=== PATIENT | female | born 1965 | race Caucasian/White ===

== ENCOUNTER 2017-12-14 07:53 | Outpatient (CLI) | payer MEDICAID ==
[~2017-12-14 07:53] MED LIST: DEXL60CA3; DIPH25CA6; DIPH25TA89 PO; ESTR1TAB28; ONDA4TAB12 PO; OXYC-134 PO; PROM25TA14 PO; SUCR1TAB
[2017-12-14 09:10] LABS: BASOPHILS # (AUTO) 0.1 X10'3 (0-0.2); BASOPHILS % (AUTO) 0.7 % (0-1); EOSINOPHILS # (AUTO) 0.1 X10'3 (0-0.9); EOSINOPHILS % (AUTO) 1.1 % (0-6); HEMATOCRIT 41.5 % (35.0-45.0); HEMOGLOBIN 14.3 g/dl (12.0-16.0); LYMPHOCYTES # (AUTO) 1.4 X10'3 (1.1-4.8); LYMPHOCYTES % (AUTO) 18.3 % (21-51); MEAN CORPUSCULAR HEMOGLOBIN 32.4 PG (27.0-31.0); MEAN CORPUSCULAR HGB CONC 34.4 % (33.0-36.5); MEAN CORPUSCULAR VOLUME 94.2 FL (78-98); MEAN PLATELET VOLUME 8.3 FL (7.4-10.4); MONOCYTES # (AUTO) 0.4 X10'3 (0-0.9); NEUTROPHILS # (AUTO) 5.7 X10'3 (1.8-7.7); NEUTROPHILS % (AUTO) 74.9 % (42-75); PLATELET COUNT 265 X10'3 (140-440); RED BLOOD COUNT 4.41 X10'6 (4.20-5.60); RED CELL DISTRIBUTION WIDTH 12.8 % (11.5-14.5); WHITE BLOOD COUNT 7.7 X10'3 (4.5-11.0)
[2017-12-14 09:24] LABS: ALANINE AMINOTRANSFERASE 28 U/L (12-78); ALBUMIN 3.5 G/DL (3.4-5.0); ALBUMIN/GLOBULIN RATIO 0.9 (1.1-1.5); ALKALINE PHOSPHATASE 92 IU/L (46-116); ANION GAP 11 (8-16); ASPARTATE AMINO TRANSFERASE 23 U/L (10-37); BILIRUBIN,TOTAL 0.3 MG/DL (0.1-1.0); BLOOD UREA NITROGEN 10 MG/DL (7-18); BUN/CREATININE RATIO 16.1 (6.6-38.0); CALCIUM 9.2 MG/DL (8.5-10.1); CHLORIDE 104 MMOL/L (99-107); CREATININE 0.62 MG/DL (0.40-0.90); GLUCOSE 112 MG/DL (70-104); POTASSIUM 3.4 MMOL/L (3.5-5.1); SODIUM 141 MMOL/L (135-145); TOTAL CARBON DIOXIDE 25.8 MMOL/L (24-32); TOTAL PROTEIN 7.5 G/DL (6.4-8.2); eGFR > 90 ML/MIN
== END 2017-12-14 23:59 | disposition home or self-care (01) ==
LOC: RAD 07:53
PROVIDERS: ATTEND Nurse Practitioner
DX: L03.90 Cellulitis, unspecified (principal); F17.200 Nicotine dependence, unspecified, uncomplicated; Z90.710 Acquired absence of both cervix and uterus; W34.00XA Accidental discharge from unspecified firearms or gun, initial encounter; Y93.89 Activity, other specified; Y92.89 Other specified places as the place of occurrence of the external cause; Y99.8 Other external cause status
CPT/HCPCS: 36415; 76881; 80053; 85025

== ENCOUNTER 2017-12-14 14:49 | Emergency (ER) | payer MEDICAID ==
[~2017-12-14] VITALS: Ht 152.4 cm; Wt 77.8 kg
[2017-12-14] MEDS ORDERED: iohexol 300mg/ml 100ml inj. ONE (16:01)
[2017-12-14 17:19] VITALS: BP 130/52
== END 2017-12-14 17:22 | disposition home or self-care (01) ==
LOC: ER 14:50
DX: L03.311 Cellulitis of abdominal wall (principal); G89.29 Other chronic pain; Z90.49 Acquired absence of other specified parts of digestive tract; Z90.710 Acquired absence of both cervix and uterus; Z88.0 Allergy status to penicillin; Z88.7 Allergy status to serum and vaccine; Z88.5 Allergy status to narcotic agent; Z88.6 Allergy status to analgesic agent; Z79.899 Other long term (current) drug therapy
CPT/HCPCS: 74177; 99284; J7030; Q9967

== ENCOUNTER 2018-07-16 05:48 | Emergency (ER) | payer MEDICAID ==
[~2018-07-16] VITALS: Ht 152.4 cm; Wt 72.7 kg
[~2018-07-16 05:48] MED LIST changes: +ALBU8HFA PO; +PANT-47 PO
[2018-07-16] MEDS ORDERED: acetaminophen 325mg tablet PO ONE (06:10)
[2018-07-16] MEDS ORDERED: ondansetron 4mg rapidly disintigrating tab PO ONE (06:10)
[2018-07-16] MEDS ORDERED: pantoprazole 40mg Tablet.DR PO ONE (06:15)
[2018-07-16 07:02] LABS: CLARITY,URINE SLIGHTLY CLOUDY (Clear); COLOR,URINE YELLOW (Yellow); GLUCOSE, URINE NEGATIVE (Neg); KETONES,URINE NEGATIVE (Neg); LEUKOCYTE ESTERASE ,URINE NEGATIVE (Neg); NITRITES, URINE POSITIVE (Neg); OCCULT BLOOD,URINE TRACE-LYSED (Neg); PROTEIN,URINE TRACE mg/dl (Neg); UA COLLECTION TYPE CLN CATCH MIDSTREAM; UROBILINOGEN,URINE 0.2 E.U/dL (0.2-1.0)
[2018-07-16 07:09] LABS: BACTERIA,URINE 4+ /HPF (Neg); COARSE GRANULAR CAST 0-3 /LPF (NEGATIVE); MUCUS STRANDS NONE SEEN /LPF (Neg); SQUAMOUS EPITHELIAL CELL,UR MODERATE /LPF (FEW); WBC,URINE 0-4 /HPF (0-4)
[2018-07-16 07:23] LABS: BASOPHILS # (AUTO) 0.1 X10'3 (0-0.2); BASOPHILS % (AUTO) 0.7 % (0-1); EOSINOPHILS % (AUTO) 0.5 % (0-6); HEMOGLOBIN 14.5 g/dl (12.0-16.0); LYMPHOCYTES # (AUTO) 1.1 X10'3 (1.1-4.8); LYMPHOCYTES % (AUTO) 14.2 % (21-51); MEAN CORPUSCULAR HEMOGLOBIN 32.1 PG (27.0-31.0); MEAN CORPUSCULAR HGB CONC 34.4 g/dL (33.0-36.5); MEAN CORPUSCULAR VOLUME 93.1 FL (78-98); MONOCYTES # (AUTO) 0.5 X10'3 (0-0.9); MONOCYTES % (AUTO) 5.9 % (2-12); NEUTROPHILS # (AUTO) 6.3 X10'3 (1.8-7.7); NEUTROPHILS % (AUTO) 78.7 % (42-75); PLATELET COUNT 222 X10'3 (140-440); RED BLOOD COUNT 4.51 X10'6 (4.20-5.60); RED CELL DISTRIBUTION WIDTH 12.8 % (11.5-14.5); WHITE BLOOD COUNT 8.1 X10'3 (4.5-11.0)
[2018-07-16] MEDS ORDERED: normal saline 1000ml 1,000 ML IV ONE (07:25)
[2018-07-16 07:38] LABS: ALANINE AMINOTRANSFERASE 80 U/L (12-78); ALBUMIN 3.8 G/DL (3.4-5.0); ALKALINE PHOSPHATASE 100 IU/L (46-116); ANION GAP 12 (8-16); ASPARTATE AMINO TRANSFERASE 39 U/L (10-37); BILIRUBIN,TOTAL 0.4 MG/DL (0.1-1.0); BLOOD UREA NITROGEN 11 MG/DL (7-18); BUN/CREATININE RATIO 16.2 (6.6-38.0); CALCIUM 9.7 MG/DL (8.5-10.1); CHLORIDE 107 MMOL/L (99-107); CREATININE 0.68 MG/DL (0.40-0.90); GLUCOSE 124 MG/DL (70-104); LIPASE 178 U/L (73-393); POTASSIUM 3.4 MMOL/L (3.5-5.1); SODIUM 142 MMOL/L (135-145); TOTAL CARBON DIOXIDE 22.9 MMOL/L (24-32); TOTAL PROTEIN 7.7 G/DL (6.4-8.2); eGFR 90 ML/MIN
[2018-07-16] MEDS ORDERED: HYDROcodone/acetaminophen 5mg/325mg tablet PO ONE (07:55)
[2018-07-16] MEDS ORDERED: ciprofloxacin 250mg tablet PO ONE (07:55)
[2018-07-16] MEDS ORDERED: CIPR-230 PO (07:56)
[2018-07-16] MEDS ORDERED: HYDR-3965 PO (07:56)
[2018-07-16 09:00] VITALS: BP 149/84
== END 2018-07-16 09:02 | disposition home or self-care (01) ==
LOC: ER 05:49
DX: R10.84 Generalized abdominal pain (principal); R19.7 Diarrhea, unspecified; G89.29 Other chronic pain; Z90.49 Acquired absence of other specified parts of digestive tract; Z90.710 Acquired absence of both cervix and uterus; Z88.0 Allergy status to penicillin; Z88.5 Allergy status to narcotic agent; Z88.7 Allergy status to serum and vaccine; Z79.899 Other long term (current) drug therapy; Z88.6 Allergy status to analgesic agent
CPT/HCPCS: 36415; 80053; 81001; 83605; 83690; 85025; 85610; 87077; 87088; 87186; 96360; 99284; J7030

== ENCOUNTER 2018-08-29 17:45 | Emergency (ER) | payer MEDICAID ==
[~2018-08-29] VITALS: Ht 152.4 cm; Wt 80.9 kg
[~2018-08-29 17:45] MED LIST changes: -ALBU8HFA PO
[2018-08-29 17:53] VITALS: BP 124/83
[2018-08-29] MEDS ORDERED: FLUT16SP2 BOTHNARES (18:38)
[2018-08-29] MEDS ORDERED: CETI10TA15 PO (18:38)
== END 2018-08-29 19:18 | disposition home or self-care (01) ==
LOC: ER 17:46
DX: H92.02 Otalgia, left ear (principal); J30.2 Other seasonal allergic rhinitis; G89.29 Other chronic pain; F17.200 Nicotine dependence, unspecified, uncomplicated; Z90.49 Acquired absence of other specified parts of digestive tract; Z90.710 Acquired absence of both cervix and uterus; Z88.0 Allergy status to penicillin; Z88.5 Allergy status to narcotic agent; Z88.8 Allergy status to other drugs, medicaments and biological substances; Z79.899 Other long term (current) drug therapy
CPT/HCPCS: 99283

== ENCOUNTER 2019-01-15 08:34 | Emergency (ER) | payer MEDICAID ==
[~2019-01-15] VITALS: Ht 152.4 cm; Wt 84.8 kg
[~2019-01-15 08:34] MED LIST changes: +CETI10TA15 PO; +DIPH25CA54; -DIPH25CA6; +FLUT16SP2 BOTHNARES
[2019-01-15] MEDS ORDERED: albuterol 2.5 MG/3 ML nebule NEB ONE (09:05)
[2019-01-15] MEDS ORDERED: PRED20TA PO (09:43)
[2019-01-15] MEDS ORDERED: AZIT250T83 PO (09:43)
[2019-01-15] MEDS ORDERED: ALBU18HF2 INH (09:43)
--- NOTE | 2019-01-15 09:45 | NUR ---
SECOND PAGE PLACED FOR RT
[2019-01-15] MEDS ORDERED: NICO-687 TOP (09:53)
[2019-01-15] MEDS ORDERED: BENZ-16 PO (09:53)
[2019-01-15 10:09] VITALS: BP 152/80
== END 2019-01-15 10:11 | disposition home or self-care (01) ==
LOC: ER 08:35
DX: J20.9 Acute bronchitis, unspecified (principal); G89.29 Other chronic pain; Z90.49 Acquired absence of other specified parts of digestive tract; Z90.710 Acquired absence of both cervix and uterus; F17.200 Nicotine dependence, unspecified, uncomplicated; Z98.890 Other specified postprocedural states; Z88.0 Allergy status to penicillin; Z88.5 Allergy status to narcotic agent; Z88.6 Allergy status to analgesic agent; Z88.7 Allergy status to serum and vaccine; Z79.899 Other long term (current) drug therapy
CPT/HCPCS: 71045; 94640; 94760; 99283

== ENCOUNTER 2019-01-18 07:45 | Emergency (ER) | payer MEDICAID ==
[~2019-01-18] VITALS: Ht 152.4 cm; Wt 83.0 kg
[~2019-01-18 07:45] MED LIST changes: +ALBU18HF2 INH; +AZIT250T83 PO; +BENZ-16 PO; +NICO-687 TOP; +PRED20TA PO
[2019-01-18] MEDS ORDERED: pantoprazole 40mg Tablet.DR PO ONE (08:20)
[2019-01-18] MEDS ORDERED: ondansetron 4mg rapidly disintigrating tab PO ONE (08:20)
[2019-01-18] MEDS ORDERED: loperamide 2mg capsule PO ONE (08:20)
[2019-01-18] MEDS ORDERED: CHOL10002 PO (08:21)
[2019-01-18] MEDS ORDERED: OMEP40CA13 PO (08:21)
[2019-01-18] MEDS ORDERED: PROC-8 PO (08:24)
[2019-01-18 09:20] VITALS: BP 104/31
== END 2019-01-18 09:22 | disposition home or self-care (01) ==
LOC: ER 07:46
DX: K29.70 Gastritis, unspecified, without bleeding (principal); T36.3X5A Adverse effect of macrolides, initial encounter; T38.0X5A Adverse effect of glucocorticoids and synthetic analogues, initial encounter; J44.9 Chronic obstructive pulmonary disease, unspecified; K21.9 Gastro-esophageal reflux disease without esophagitis; G89.29 Other chronic pain; F17.200 Nicotine dependence, unspecified, uncomplicated; Z90.49 Acquired absence of other specified parts of digestive tract; Z90.710 Acquired absence of both cervix and uterus; Z98.890 Other specified postprocedural states; Z88.0 Allergy status to penicillin; Z88.5 Allergy status to narcotic agent; Z79.2 Long term (current) use of antibiotics; Z79.899 Other long term (current) drug therapy; Y92.89 Other specified places as the place of occurrence of the external cause
CPT/HCPCS: 99284

== ENCOUNTER 2019-05-08 17:48 | Emergency (ER) | payer MEDICAID ==
[~2019-05-08] VITALS: Ht 152.4 cm; Wt 81.8 kg
[~2019-05-08 17:48] MED LIST changes: -AZIT250T83 PO; -BENZ-16 PO; -CETI10TA15 PO; +CHOL10002 PO; -DEXL60CA3; -DIPH25CA54; -DIPH25TA89 PO; -ESTR1TAB28; -FLUT16SP2 BOTHNARES; -NICO-687 TOP; +OMEP40CA13 PO; -ONDA4TAB12 PO; -OXYC-134 PO; -PANT-47 PO; -PRED20TA PO; +PROC-8 PO; -PROM25TA14 PO
[2019-05-08 19:23] LABS: BASOPHILS # (AUTO) 0.1 X10'3 (0-0.2); BASOPHILS % (AUTO) 1.2 % (0-1); EOSINOPHILS # (AUTO) 0.1 X10'3 (0-0.9); EOSINOPHILS % (AUTO) 0.9 % (0-6); HEMOGLOBIN 14.5 g/dl (12.0-16.0); LYMPHOCYTES # (AUTO) 2.3 X10'3 (1.1-4.8); LYMPHOCYTES % (AUTO) 36.3 % (21-51); MEAN CORPUSCULAR HEMOGLOBIN 32.3 PG (27.0-31.0); MEAN CORPUSCULAR HGB CONC 35.2 g/dL (33.0-36.5); MEAN CORPUSCULAR VOLUME 91.8 FL (78-98); MEAN PLATELET VOLUME 7.8 FL (7.4-10.4); MONOCYTES # (AUTO) 0.5 X10'3 (0-0.9); MONOCYTES % (AUTO) 7.7 % (2-12); NEUTROPHILS # (AUTO) 3.5 X10'3 (1.8-7.7); NEUTROPHILS % (AUTO) 53.9 % (42-75); PLATELET COUNT 261 X10'3 (140-440); RED BLOOD COUNT 4.47 X10'6 (4.20-5.60); RED CELL DISTRIBUTION WIDTH 12.7 % (11.5-14.5); WHITE BLOOD COUNT 6.4 X10'3 (4.5-11.0)
[2019-05-08 19:35] LABS: ALANINE AMINOTRANSFERASE 41 U/L (12-78); ALBUMIN 3.9 G/DL (3.4-5.0); ALBUMIN/GLOBULIN RATIO 1.1 (1.1-1.5); ALKALINE PHOSPHATASE 82 IU/L (46-116); ANION GAP 9 (8-16); ASPARTATE AMINO TRANSFERASE 19 U/L (10-37); BILIRUBIN,TOTAL 0.2 MG/DL (0.1-1.0); BLOOD UREA NITROGEN 8 MG/DL (7-18); BUN/CREATININE RATIO 11.1 (6.6-38.0); CALCIUM 9.2 MG/DL (8.5-10.1); CHLORIDE 107 MMOL/L (99-107); CREATININE 0.72 MG/DL (0.40-0.90); GLUCOSE 99 MG/DL (70-104); LIPASE 165 U/L (73-393); POTASSIUM 3.5 MMOL/L (3.5-5.1); SODIUM 142 MMOL/L (135-145); TOTAL PROTEIN 7.4 G/DL (6.4-8.2); eGFR 84 ML/MIN
[2019-05-08 20:27] LABS: URINE HCG NEGATIVE (NEG)
[2019-05-08 20:30] LABS: CLARITY,URINE SLIGHTLY CLOUDY (Clear); COLOR,URINE YELLOW (Yellow); GLUCOSE, URINE NEGATIVE (Neg); KETONES,URINE NEGATIVE (Neg); LEUKOCYTE ESTERASE ,URINE NEGATIVE (Neg); NITRITES, URINE NEGATIVE (Neg); OCCULT BLOOD,URINE TRACE-INTACT (Neg); PH,URINE 7.5 (4.8-8.0); PROTEIN,URINE 30 mg/dl (Neg); UROBILINOGEN,URINE 0.2 E.U/dL (0.2-1.0)
[2019-05-08] MEDS ORDERED: mag hydrox/Alum hydrox/simeth 30ml oral suspension PO ONE (20:30)
[2019-05-08] MEDS ORDERED: normal saline 1000ML IV soln IVB ONE (20:30)
[2019-05-08] MEDS ORDERED: pantoprazole 40 MG vial IV ONE (20:30)
[2019-05-08] MEDS ORDERED: ondansetron/PF 4mg/2ml inj IV ONE (20:30)
[2019-05-08] MEDS ORDERED: LIDOcaine Viscous 15ml cup MM ONE (20:30)
--- NOTE | 2019-05-08 20:44 | NUR ---
pt did not want an IV. She would rather take protonix and zofran PO. Dr. Cisneros is ok with PO. New orders placed. pt denies n/v or headache. Denies dizziness. she will drink water PO
[2019-05-08] MEDS ORDERED: ondansetron 4mg rapidly disintigrating tab PO ONE (20:45)
[2019-05-08 20:49] LABS: UA COLLECTION TYPE VOIDED
[2019-05-08 20:53] LABS: BACTERIA,URINE NONE SEEN /HPF (Neg); RBC,URINE NONE SEEN /HPF (0-2); SQUAMOUS EPITHELIAL CELL,UR MANY /LPF (FEW); WBC,URINE 0-4 /HPF (0-4)
[2019-05-08 20:54] LABS: AMORPHOUS PHOSPHATES 1+
[2019-05-08] MEDS ORDERED: pantoprazole 40mg Tablet.DR PO SCH (21:01)
[2019-05-08 21:35] VITALS: BP 141/78
== END 2019-05-08 21:37 | disposition home or self-care (01) ==
LOC: ER 17:50
DX: R10.13 Epigastric pain (principal); R19.7 Diarrhea, unspecified; R11.0 Nausea; J44.9 Chronic obstructive pulmonary disease, unspecified; K21.9 Gastro-esophageal reflux disease without esophagitis; F17.200 Nicotine dependence, unspecified, uncomplicated; G89.29 Other chronic pain; Z90.49 Acquired absence of other specified parts of digestive tract; Z90.710 Acquired absence of both cervix and uterus; Z98.890 Other specified postprocedural states; Z88.0 Allergy status to penicillin; Z88.7 Allergy status to serum and vaccine; Z88.5 Allergy status to narcotic agent; Z88.6 Allergy status to analgesic agent; Z79.899 Other long term (current) drug therapy
CPT/HCPCS: 36415; 80053; 81001; 81025; 83690; 85025; 99284

== ENCOUNTER 2019-06-15 06:55 | Emergency (ER) | payer MEDICAID ==
[~2019-06-15] VITALS: Ht 154.9 cm; Wt 79.0 kg
[2019-06-15] MEDS ORDERED: albuterol 2.5 MG/3 ML nebule NEB ONE (07:20)
[2019-06-15] MEDS ORDERED: ipratropium/albuterol 3ml nebule NEB ONE (07:20)
[2019-06-15] MEDS ORDERED: predniSONE 20 mg tablet PO ONE (07:20)
[2019-06-15] MEDS ORDERED: PRED20TA PO (07:58)
[2019-06-15] MEDS ORDERED: ALBU8HFA PO (07:58)
[2019-06-15] MEDS ORDERED: AZIT250T PO (07:58)
[2019-06-15 08:22] VITALS: BP 127/70
== END 2019-06-15 08:23 | disposition home or self-care (01) ==
LOC: ER 06:56
DX: J44.1 Chronic obstructive pulmonary disease with (acute) exacerbation (principal); K21.9 Gastro-esophageal reflux disease without esophagitis; G89.29 Other chronic pain; F17.200 Nicotine dependence, unspecified, uncomplicated; Z90.49 Acquired absence of other specified parts of digestive tract; Z90.710 Acquired absence of both cervix and uterus; Z98.890 Other specified postprocedural states; Z88.0 Allergy status to penicillin; Z88.7 Allergy status to serum and vaccine; Z88.5 Allergy status to narcotic agent; Z88.6 Allergy status to analgesic agent; Z79.2 Long term (current) use of antibiotics; Z79.899 Other long term (current) drug therapy
CPT/HCPCS: 71045; 94640; 99283; J7512

== ENCOUNTER 2019-10-25 14:17 | Emergency (ER) | payer MEDICAID ==
[~2019-10-25] VITALS: Ht 152.4 cm; Wt 86.0 kg
[2019-10-25 14:36] VITALS: BP 137/81
== END 2019-10-25 16:31 | disposition home or self-care (01) ==
LOC: ER 14:18
DX: M25.512 Pain in left shoulder (principal); J44.9 Chronic obstructive pulmonary disease, unspecified; K21.9 Gastro-esophageal reflux disease without esophagitis; G89.29 Other chronic pain; F17.200 Nicotine dependence, unspecified, uncomplicated; Z90.49 Acquired absence of other specified parts of digestive tract; Z90.710 Acquired absence of both cervix and uterus; Z98.51 Tubal ligation status; Z98.890 Other specified postprocedural states; Z88.0 Allergy status to penicillin; Z88.7 Allergy status to serum and vaccine; Z88.5 Allergy status to narcotic agent; Z88.6 Allergy status to analgesic agent; Z79.899 Other long term (current) drug therapy
CPT/HCPCS: 73030; 93005; 93971; 99284

== ENCOUNTER 2019-11-26 00:55 | Emergency (ER) | payer MEDICAID ==
[~2019-11-26] VITALS: Ht 152.4 cm; Wt 90.0 kg
[2019-11-26] MEDS ORDERED: ondansetron/PF 4mg/2ml inj IV ONE ×2 (01:20→02:25)
[2019-11-26] MEDS ORDERED: famotidine/PF 10 mg/ml inj IV ONE (01:20)
[2019-11-26] MEDS ORDERED: normal saline 1000ml 1,000 ML IV ONE (01:20)
[2019-11-26 01:25] LABS: BASOPHILS # (AUTO) 0.1 X10'3 (0-0.2); BASOPHILS % (AUTO) 0.6 % (0-1); EOSINOPHILS # (AUTO) 0.1 X10'3 (0-0.9); EOSINOPHILS % (AUTO) 0.5 % (0-6); HEMATOCRIT 46.8 % (35.0-45.0); HEMOGLOBIN 16.1 g/dl (12.0-16.0); LYMPHOCYTES # (AUTO) 1.5 X10'3 (1.1-4.8); LYMPHOCYTES % (AUTO) 8.8 % (21-51); MEAN CORPUSCULAR HEMOGLOBIN 32.4 PG (27.0-31.0); MEAN CORPUSCULAR HGB CONC 34.4 g/dL (33.0-36.5); MEAN CORPUSCULAR VOLUME 94.3 FL (78-98); MONOCYTES # (AUTO) 1.1 X10'3 (0-0.9); MONOCYTES % (AUTO) 6.4 % (2-12); NEUTROPHILS # (AUTO) 14.2 X10'3 (1.8-7.7); NEUTROPHILS % (AUTO) 83.7 % (42-75); PLATELET COUNT 270 X10'3 (140-440); RED BLOOD COUNT 4.96 X10'6 (4.20-5.60); RED CELL DISTRIBUTION WIDTH 12.6 % (11.5-14.5)
[2019-11-26 01:41] LABS: ALANINE AMINOTRANSFERASE 31 U/L (12-78); ALBUMIN 4.3 G/DL (3.4-5.0); ALBUMIN/GLOBULIN RATIO 1.1 (1.1-1.5); ALKALINE PHOSPHATASE 82 IU/L (46-116); ANION GAP 13 (8-16); ASPARTATE AMINO TRANSFERASE 27 U/L (10-37); BILIRUBIN,TOTAL 0.4 MG/DL (0.1-1.0); BLOOD UREA NITROGEN 16 MG/DL (7-18); BUN/CREATININE RATIO 16.8 (6.6-38.0); CALCIUM 9.9 MG/DL (8.5-10.1); CHLORIDE 104 MMOL/L (99-107); CREATININE 0.95 MG/DL (0.40-0.90); GLUCOSE 154 MG/DL (70-104); POTASSIUM 3.6 MMOL/L (3.5-5.1); SODIUM 141 MMOL/L (135-145); TOTAL CARBON DIOXIDE 23.9 MMOL/L (24-32); TOTAL PROTEIN 8.2 G/DL (6.4-8.2); eGFR 61 ML/MIN
[2019-11-26 01:45] LABS: LIPASE 239 U/L (73-393); TROPONIN I < 0.04 NG/ML (0.0-0.05)
[2019-11-26] MEDS ORDERED: morphine 4 MG/ML inj SYRINge IV ONE ×2 (02:00→03:10)
[2019-11-26 02:12] LABS: CLARITY,URINE CLEAR (Clear); COLOR,URINE YELLOW (Yellow); GLUCOSE, URINE NEGATIVE (Neg); KETONES,URINE NEGATIVE (Neg); LEUKOCYTE ESTERASE ,URINE NEGATIVE (Neg); NITRITES, URINE NEGATIVE (Neg); OCCULT BLOOD,URINE SMALL (Neg); PROTEIN,URINE 30 mg/dl (Neg); UROBILINOGEN,URINE 0.2 E.U/dL (0.2-1.0)
[2019-11-26 02:13] LABS: UA COLLECTION TYPE CLN CATCH MIDSTREAM
[2019-11-26 02:19] LABS: BACTERIA,URINE NONE SEEN /HPF (Neg); MUCUS STRANDS FEW /LPF (Neg); RBC,URINE 0-2 /HPF (0-2); SQUAMOUS EPITHELIAL CELL,UR FEW /LPF (FEW); WBC,URINE NONE SEEN /HPF (0-4)
[2019-11-26] MEDS ORDERED: ONDA8TAB6 PO (03:13)
[2019-11-26] MEDS ORDERED: HYDR-3965 PO (03:13)
[2019-11-26] MEDS ORDERED: METO-292 PO (03:13)
[2019-11-26] MEDS ORDERED: metoclopramide 5 mg/ml inj IV ONE (03:15)
[2019-11-26 03:30] VITALS: BP 141/83
== END 2019-11-26 03:31 | disposition home or self-care (01) ==
LOC: ER 00:55
DX: K56.7 Ileus, unspecified (principal); R11.2 Nausea with vomiting, unspecified; J44.9 Chronic obstructive pulmonary disease, unspecified; K21.9 Gastro-esophageal reflux disease without esophagitis; G89.29 Other chronic pain; Z90.49 Acquired absence of other specified parts of digestive tract; Z90.710 Acquired absence of both cervix and uterus; Z98.51 Tubal ligation status; Z98.890 Other specified postprocedural states; Z88.0 Allergy status to penicillin; Z88.7 Allergy status to serum and vaccine; Z88.5 Allergy status to narcotic agent; Z79.899 Other long term (current) drug therapy
CPT/HCPCS: 36415; 74176; 80053; 81001; 83690; 84145; 84484; 85025; 96361; 96374; 96375; 96376; 99284; J2270; J2405; J2765; J3490; J7030

== ENCOUNTER 2020-02-09 14:57 | Emergency (ER) | payer MEDICAID ==
[~2020-02-09] VITALS: Ht 152.4 cm; Wt 77.7 kg
[~2020-02-09 14:57] MED LIST changes: +METO-292 PO; +ONDA8TAB6 PO
[2020-02-09] MEDS ORDERED: ondansetron 4mg rapidly disintigrating tab PO ONE (17:40)
[2020-02-09] MEDS ORDERED: meclizine 12.5mg tablet PO ONE (17:40)
[2020-02-09 18:51] VITALS: BP 127/75
== END 2020-02-09 18:45 | disposition home or self-care (01) ==
LOC: ER 14:59
DX: H81.10 Benign paroxysmal vertigo, unspecified ear (principal); R11.0 Nausea; R53.83 Other fatigue; J44.9 Chronic obstructive pulmonary disease, unspecified; K21.9 Gastro-esophageal reflux disease without esophagitis; G89.29 Other chronic pain; Z87.11 Personal history of peptic ulcer disease; Z90.49 Acquired absence of other specified parts of digestive tract; Z90.710 Acquired absence of both cervix and uterus; Z98.51 Tubal ligation status; Z98.890 Other specified postprocedural states; Z88.0 Allergy status to penicillin; Z88.5 Allergy status to narcotic agent; Z88.6 Allergy status to analgesic agent; Z79.899 Other long term (current) drug therapy
CPT/HCPCS: 99283; J8597; 93005

== ENCOUNTER 2020-03-25 06:14 | Emergency (ER) | payer MEDICAID ==
[~2020-03-25] VITALS: Ht 152.4 cm; Wt 77.7 kg
[2020-03-25] MEDS ORDERED: pantoprazole 40 MG vial IV ONE (07:00)
[2020-03-25] MEDS ORDERED: ondansetron/PF 4mg/2ml inj IV ONE (07:00)
[2020-03-25] MEDS ORDERED: LORazepam 2 mg/ml vial IV ONE (07:00)
[2020-03-25] MEDS ORDERED: normal saline 1000ML IV soln IVB ONE (07:00)
[2020-03-25 07:44] VITALS: BP 143/72
[2020-03-25 07:51] LABS: BASOPHILS # (AUTO) 0.1 X10'3 (0-0.2); BASOPHILS % (AUTO) 0.8 % (0-1); EOSINOPHILS % (AUTO) 0.1 % (0-6); HEMATOCRIT 43.3 % (35.0-45.0); LYMPHOCYTES # (AUTO) 0.6 X10'3 (1.1-4.8); LYMPHOCYTES % (AUTO) 7.1 % (21-51); MEAN CORPUSCULAR HEMOGLOBIN 32.4 PG (27.0-31.0); MEAN CORPUSCULAR HGB CONC 34.7 g/dL (33.0-36.5); MEAN CORPUSCULAR VOLUME 93.4 FL (78-98); MEAN PLATELET VOLUME 8.3 FL (7.4-10.4); MONOCYTES # (AUTO) 0.5 X10'3 (0-0.9); MONOCYTES % (AUTO) 5.7 % (2-12); NEUTROPHILS # (AUTO) 7.8 X10'3 (1.8-7.7); NEUTROPHILS % (AUTO) 86.3 % (42-75); PLATELET COUNT 261 X10'3 (140-440); RED BLOOD COUNT 4.64 X10'6 (4.20-5.60); RED CELL DISTRIBUTION WIDTH 12.6 % (11.5-14.5); WHITE BLOOD COUNT 9.1 X10'3 (4.5-11.0)
[2020-03-25 08:04] LABS: ALANINE AMINOTRANSFERASE 59 U/L (12-78); ALBUMIN 4.2 G/DL (3.4-5.0); ALKALINE PHOSPHATASE 108 IU/L (46-116); ANION GAP 11 (8-16); ASPARTATE AMINO TRANSFERASE 30 U/L (10-37); BILIRUBIN,TOTAL 0.6 MG/DL (0.1-1.0); BLOOD UREA NITROGEN 13 MG/DL (7-18); CALCIUM 10.2 MG/DL (8.5-10.1); CHLORIDE 105 MMOL/L (99-107); CREATININE 0.65 MG/DL (0.40-0.90); GLUCOSE 137 MG/DL (70-104); LIPASE 111 U/L (73-393); POTASSIUM 3.7 MMOL/L (3.5-5.1); SODIUM 140 MMOL/L (135-145); TOTAL CARBON DIOXIDE 23.6 MMOL/L (24-32); TOTAL PROTEIN 8.3 G/DL (6.4-8.2); eGFR > 90 ML/MIN
[2020-03-25] MEDS ORDERED: PANT-47 PO (08:20)
[2020-03-25] MEDS ORDERED: ONDA8TAB13 PO (08:20)
--- NOTE | 2020-03-25 08:26 | NUR ---
Pt requesting water. Per MD, PO challenge with small amount of water.
== END 2020-03-25 08:46 | disposition home or self-care (01) ==
LOC: ER 06:14
DX: R10.13 Epigastric pain (principal); K21.9 Gastro-esophageal reflux disease without esophagitis; J44.9 Chronic obstructive pulmonary disease, unspecified; G89.29 Other chronic pain; F17.200 Nicotine dependence, unspecified, uncomplicated; Z90.49 Acquired absence of other specified parts of digestive tract; Z90.89 Acquired absence of other organs; Z98.51 Tubal ligation status; Z88.0 Allergy status to penicillin; Z88.7 Allergy status to serum and vaccine; Z88.8 Allergy status to other drugs, medicaments and biological substances; Z79.899 Other long term (current) drug therapy
CPT/HCPCS: 36415; 71045; 80053; 83690; 85025; 96361; 96374; 96375; 99284; C9113; J2060; J2405; J7030

== ENCOUNTER 2020-06-23 10:39 | Emergency (ER) | payer MEDICAID ==
[~2020-06-23] VITALS: Ht 152.4 cm; Wt 70.3 kg
[~2020-06-23 10:39] MED LIST changes: +ONDA8TAB13 PO; +PANT-47 PO
[2020-06-23 10:47] VITALS: BP 132/83
[2020-06-23] MEDS ORDERED: FLUT16SP2 BOTHNARES (11:30)
== END 2020-06-23 11:41 | disposition home or self-care (01) ==
LOC: ER 10:40
DX: H92.01 Otalgia, right ear (principal); J44.9 Chronic obstructive pulmonary disease, unspecified; K21.9 Gastro-esophageal reflux disease without esophagitis; G89.29 Other chronic pain; Z87.11 Personal history of peptic ulcer disease; Z90.49 Acquired absence of other specified parts of digestive tract; Z90.710 Acquired absence of both cervix and uterus; Z98.51 Tubal ligation status; Z98.890 Other specified postprocedural states; Z88.0 Allergy status to penicillin; Z88.5 Allergy status to narcotic agent; Z88.6 Allergy status to analgesic agent; Z79.899 Other long term (current) drug therapy
CPT/HCPCS: 99283

== ENCOUNTER 2020-09-19 18:41 | Emergency (ER) | payer MEDICAID ==
[~2020-09-19] VITALS: Ht 152.4 cm; Wt 81.8 kg
[~2020-09-19 18:41] MED LIST changes: +FLUT16SP2 BOTHNARES; -OMEP40CA13 PO; +OMEP40CA21 PO
[2020-09-19 19:34] LABS: BASOPHILS # (AUTO) 0.1 X10'3 (0-0.2); BASOPHILS % (AUTO) 0.9 % (0-1); EOSINOPHILS % (AUTO) 0.5 % (0-6); HEMATOCRIT 44.9 % (35.0-45.0); HEMOGLOBIN 15.8 g/dl (12.0-16.0); LYMPHOCYTES # (AUTO) 1.5 X10'3 (1.1-4.8); LYMPHOCYTES % (AUTO) 16.4 % (21-51); MEAN CORPUSCULAR HEMOGLOBIN 33.5 PG (27.0-31.0); MEAN CORPUSCULAR HGB CONC 35.1 g/dL (33.0-36.5); MEAN CORPUSCULAR VOLUME 95.7 FL (78-98); MEAN PLATELET VOLUME 7.9 FL (7.4-10.4); MONOCYTES # (AUTO) 0.4 X10'3 (0-0.9); NEUTROPHILS % (AUTO) 78.2 % (42-75); PLATELET COUNT 303 X10'3 (140-440); RED CELL DISTRIBUTION WIDTH 12.8 % (11.5-14.5); WHITE BLOOD COUNT 8.9 X10'3 (4.5-11.0)
[2020-09-19 19:45] LABS: COLOR,URINE YELLOW (Yellow); GLUCOSE, URINE NEGATIVE (Neg); KETONES,URINE >=80 mg/dl (Neg); LEUKOCYTE ESTERASE ,URINE NEGATIVE (Neg); NITRITES, URINE NEGATIVE (Neg); OCCULT BLOOD,URINE MODERATE (Neg); PH,URINE 5.5 (4.8-8.0); PROTEIN,URINE 100 mg/dl (Neg); UROBILINOGEN,URINE 0.2 E.U/dL (0.2-1.0)
[2020-09-19 19:47] LABS: ALANINE AMINOTRANSFERASE 31 U/L (12-78); ALBUMIN 4.4 G/DL (3.4-5.0); ALBUMIN/GLOBULIN RATIO 1.1 (1.1-1.5); ALKALINE PHOSPHATASE 103 IU/L (46-116); AMYLASE 43 U/L (25-115); ANION GAP 16 (8-16); ASPARTATE AMINO TRANSFERASE 20 U/L (10-37); BILIRUBIN,TOTAL 0.3 MG/DL (0.1-1.0); BLOOD UREA NITROGEN 12 MG/DL (7-18); BUN/CREATININE RATIO 15.2 (6.6-38.0); CALCIUM 9.7 MG/DL (8.5-10.1); CHLORIDE 105 MMOL/L (99-107); CREATININE 0.79 MG/DL (0.40-0.90); GLUCOSE 128 MG/DL (70-104); LIPASE 128 U/L (73-393); POTASSIUM 3.6 MMOL/L (3.5-5.1); SODIUM 140 MMOL/L (135-145); TOTAL CARBON DIOXIDE 19.4 MMOL/L (24-32); TOTAL PROTEIN 8.3 G/DL (6.4-8.2); eGFR 75 ML/MIN
[2020-09-19 19:54] LABS: UA COLLECTION TYPE CLN CATCH MIDSTREAM
[2020-09-19 19:55] LABS: CLARITY,URINE SLIGHTLY CLOUDY (Clear); RBC,URINE 0-2 /HPF (0-2); WBC,URINE NONE SEEN /HPF (0-4)
[2020-09-19] MEDS ORDERED: glycopyrrolate 0.2mg/ml inj IV ONE (19:55)
[2020-09-19] MEDS ORDERED: diphenhydrAMINE 50 mg/ml inj IV ONE (19:55)
[2020-09-19] MEDS ORDERED: normal saline 1000ML IV soln IVB ONE ×2 (19:55)
[2020-09-19] MEDS ORDERED: metoclopramide 5 mg/ml inj IV ONE (19:55)
[2020-09-19 19:56] LABS: BACTERIA,URINE NONE SEEN /HPF (Neg); MUCUS STRANDS FEW /LPF (Neg); SQUAMOUS EPITHELIAL CELL,UR FEW /LPF (FEW)
[2020-09-19] MEDS ORDERED: ONDA4TAB12 PO (21:01)
[2020-09-19 21:05] VITALS: BP 134/76
== END 2020-09-19 21:08 | disposition home or self-care (01) ==
LOC: ER 18:41
DX: E86.0 Dehydration (principal); R11.2 Nausea with vomiting, unspecified; R10.13 Epigastric pain; R10.10 Upper abdominal pain, unspecified; J44.9 Chronic obstructive pulmonary disease, unspecified; K21.9 Gastro-esophageal reflux disease without esophagitis; G89.29 Other chronic pain; F17.210 Nicotine dependence, cigarettes, uncomplicated; Z90.49 Acquired absence of other specified parts of digestive tract; Z90.710 Acquired absence of both cervix and uterus; Z98.51 Tubal ligation status; Z88.0 Allergy status to penicillin; Z88.7 Allergy status to serum and vaccine; Z88.5 Allergy status to narcotic agent; Z88.6 Allergy status to analgesic agent; Z79.899 Other long term (current) drug therapy
CPT/HCPCS: 36415; 80053; 81001; 82150; 83690; 85025; 96361; 96374; 96375; 99284; J1200; J2765; J7030; J3490

== ENCOUNTER 2021-11-07 22:00 | Emergency (ER) | payer MEDICAID ==
[~2021-11-07] VITALS: Ht 152.4 cm; Wt 77.3 kg
[~2021-11-07 22:00] MED LIST changes: +ONDA4TAB12 PO
[2021-11-08] MEDS ORDERED: dexamethasone sod phosphate 10mg/ml inj IM STA (01:46)
[2021-11-08] MEDS ORDERED: ondansetron 4mg rapidly disintigrating tab PO ONE ×2 (01:50→03:00)
[2021-11-08] MEDS ORDERED: albuterol 2.5 MG/3 ML nebule NEB ONE (01:50)
[2021-11-08] MEDS ORDERED: NIRM1TAB PO (02:45)
[2021-11-08] MEDS ORDERED: mag hydrox/Alum hydrox/simeth 30ml oral suspension PO ONE (03:05)
[2021-11-08] MEDS ORDERED: LIDOcaine Viscous 15ml cup MM PRN (03:05)
[2021-11-08 04:25] VITALS: BP 122/96
== END 2021-11-08 04:27 | disposition home or self-care (01) ==
LOC: ER 22:02
DX: U07.1 COVID-19 (principal); K44.9 Diaphragmatic hernia without obstruction or gangrene; J44.9 Chronic obstructive pulmonary disease, unspecified; K21.9 Gastro-esophageal reflux disease without esophagitis; G89.29 Other chronic pain; Z90.49 Acquired absence of other specified parts of digestive tract; Z98.890 Other specified postprocedural states; Z88.0 Allergy status to penicillin; Z88.5 Allergy status to narcotic agent; Z79.899 Other long term (current) drug therapy
CPT/HCPCS: 71046; 80053; 83690; 83735; 94640; 94760; 99285

== ENCOUNTER 2022-04-09 16:11 | Emergency (ER) | payer MEDICAID ==
[~2022-04-09] VITALS: Ht 152.4 cm; Wt 72.7 kg
[~2022-04-09 16:11] MED LIST changes: -ALBU18HF2 INH; -FLUT16SP2 BOTHNARES; -METO-292 PO; +NIRM1TAB PO; -ONDA4TAB12 PO; -ONDA8TAB13 PO; -ONDA8TAB6 PO; -PANT-47 PO; -PROC-8 PO
[2022-04-09 16:35] VITALS: BP 151/82
== END 2022-04-09 16:50 | disposition home or self-care (01) ==
LOC: ER 16:12
DX: S61.211D Laceration without foreign body of left index finger without damage to nail, subsequent encounter (principal); J44.9 Chronic obstructive pulmonary disease, unspecified; K21.9 Gastro-esophageal reflux disease without esophagitis; G89.29 Other chronic pain; Z90.49 Acquired absence of other specified parts of digestive tract; Z98.890 Other specified postprocedural states; Z88.0 Allergy status to penicillin; Z79.899 Other long term (current) drug therapy; Z88.5 Allergy status to narcotic agent; Z88.6 Allergy status to analgesic agent
CPT/HCPCS: 99281

== ENCOUNTER 2023-04-25 17:02 | Emergency (ER) | payer MEDICAID ==
[~2023-04-25] VITALS: Ht 154.9 cm; Wt 81.8 kg
[2023-04-25 17:17] VITALS: BP 119/74; PULSE 94; TEMP 97.8; O2SAT 98
[2023-04-25] MEDS ORDERED: dexamethasone sod phosphate 10mg/ml inj IM STA (17:36)
[2023-04-25] MEDS ORDERED: ketorolac trometh inj. 60 MG/2 ML VIAL IM ONE (17:40)
[2023-04-25] MEDS ORDERED: ondansetron 4mg rapidly disintigrating tab PO ONE (18:25)
[2023-04-25] MEDS ORDERED: ketorolac trometh. 30mg/ml inj. IM ONE (18:55)
[2023-04-25 19:11] VITALS: RESP 15
[2023-04-25] MEDS ORDERED: AZIT250T83 PO (20:34)
[2023-04-25] MEDS ORDERED: ROBDML PO (20:34)
== END 2023-04-25 20:45 | disposition home or self-care (01) ==
LOC: ER 17:03
DX: J10.1 Influenza due to other identified influenza virus with other respiratory manifestations (principal); Z20.822 Contact with and (suspected) exposure to COVID-19; J44.9 Chronic obstructive pulmonary disease, unspecified; K21.9 Gastro-esophageal reflux disease without esophagitis; Z90.49 Acquired absence of other specified parts of digestive tract; Z88.0 Allergy status to penicillin; Z79.899 Other long term (current) drug therapy
CPT/HCPCS: 36415; 71045; 87502; 87503; 87811; 96372; 99284; J1100; J1885

== ENCOUNTER 2023-06-10 21:50 | Emergency (ER) | payer MEDICAID ==
[~2023-06-10] VITALS: Ht 152.4 cm; Wt 74.1 kg
[2023-06-10 21:54] VITALS: BP 148/76; PULSE 98; RESP 18; TEMP 97.9; O2SAT 99
[2023-06-10] MEDS ORDERED: AMOX-117 PO (22:50)
== END 2023-06-10 22:56 | disposition home or self-care (01) ==
LOC: ER 21:51
DX: K11.20 Sialoadenitis, unspecified (principal); K21.9 Gastro-esophageal reflux disease without esophagitis; J44.9 Chronic obstructive pulmonary disease, unspecified; G89.29 Other chronic pain; Z90.49 Acquired absence of other specified parts of digestive tract; Z88.0 Allergy status to penicillin; Z88.5 Allergy status to narcotic agent; Z88.6 Allergy status to analgesic agent; Z79.899 Other long term (current) drug therapy; Z79.1 Long term (current) use of non-steroidal anti-inflammatories (NSAID); Z98.890 Other specified postprocedural states
CPT/HCPCS: 99283